=== PATIENT | male | born 1985 | race Caucasian/White ===

== ENCOUNTER 2017-07-08 13:15 | Emergency (ER) | payer SELFPAY ==
[~2017-07-08 13:15] MED LIST: Z.0.NO CURRENT MEDS
[2017-07-08 13:18] VITALS: BP 140/100; PULSE 75; RESP 16; TEMP 98.6; O2SAT 98
[2017-07-08] MEDS ORDERED: PROT40TA PO (13:47)
[2017-07-08] MEDS ORDERED: SUCR1TAB PO (13:47)
--- NOTE | 2017-07-08 14:16 | PD ---
HPI Chief Complaint: GI Complaint Time Seen by Provider: 13:57 Travel History International Travel<30 days: No Contact w/Intl Traveler<30days: No Traveled to known affect area: No History of Present Illness HPI This patient complains of heartburn. He has a burning in the epigastric region. Symptoms are mild. He went to a different ER yesterday and got Prevacid and Carafate prescriptions. He started today. He is not better so he came here. Nothing really acute going on. Not having chest pain PFSH Past Medical History Asthma: Yes Diminished Hearing: No GERD: Yes Tetanus Vaccination: Never Vaccinated Influenza Vaccination: No Past Surgical History Other Surgery: Yes (Facial Abscess - I & D , adenoidectomy ) Social History Alcohol Use: Yes (SOCIAL) Tobacco Use: Yes (1PPD) Substance Use: No Allergies-Medications (Allergen,Severity, Reaction): Coded Allergies: No Known Allergies (Verified Allergy, Mild, 07/08/17) Reported Meds & Prescriptions Reported Meds & Active Scripts Active Reported Sucralfate 1 Gram Tab 1 Gm PO BID on empty stomach Protonix (Pantoprazole Sodium) 40 Mg Tab 40 Mg PO DAILY Review of Systems General / Constitutional: No: Fever HENT: No: Headaches Respiratory: No: Cough Physical Exam Narrative GENERAL: Well-nourished, well-developed patient in no apparent distress. SKIN: Focused skin assessment reveals no rash and nodules. Skin is Warm and dry. HEAD: Atraumatic. Normocephalic. EYES: Pupils equal and round. No scleral icterus. No injection or drainage. ENT: No nasal bleeding or discharge. Mucous membranes pink and moist. NECK: Trachea midline. No JVD. CARDIOVASCULAR: Regular rate and rhythm. No murmur appreciated. RESPIRATORY: No accessory muscle use. Clear to auscultation. Breath sounds equal bilaterally. GASTROINTESTINAL: Abdomen soft, non-tender, nondistended. Hepatic and splenic margins not palpable. MUSCULOSKELETAL: No obvious deformities. No clubbing. No cyanosis. No edema. NEUROLOGICAL: Awake and alert. No obvious cranial nerve deficits. Motor grossly within normal limits. Normal speech. PSYCHIATRIC: Appropriate mood and affect; insight and judgment normal. Data Data Last Documented VS Vital Signs Date Time Temp Pulse Resp B/P (MAP) Pulse Ox O2 Delivery O2 Flow Rate FiO2 07/08/17 13:18 98.6 75 16 140/100 (113) 98 Room Air [facility] Medical Decision Making Medical Screen Exam Complete: Yes Emergency Medical Condition: Yes Medical Record Reviewed: Yes Differential Diagnosis GERD, gastric ulcer, esophagitis Narrative Course I have reviewed the patient's electronic medical record. Patient is asymptomatic. His presentation is consistent with GERD and he has good therapy on hand but just needs to give it more time. He is also taking Naprosyn which I told him to stop. He also periodically drinks alcohol which I told him to stop. Diagnosis Primary Impression: Peptic ulcer disease Additional Instructions: Avoid aspirin and anti-inflammatories and alcohol Continue current medicines for 2 weeks Follow-up with primary care physician Med/Other Pt SpecificInfo: Other Disposition: 01 DISCHARGE HOME Condition: Stable Gavin Grace MD Jul 08, 2017 14:16
== END 2017-07-08 14:35 | disposition home or self-care (01) ==
LOC: NEPD 13:15
DX: K27.9 Peptic ulcer, site unspecified, unspecified as acute or chronic, without hemorrhage or perforation (principal); K21.9 Gastro-esophageal reflux disease without esophagitis; F17.200 Nicotine dependence, unspecified, uncomplicated
CPT/HCPCS: 99281